=== PATIENT | male | born 1985 | race African-American/Black ===

== ENCOUNTER 2016-06-30 17:09 | Emergency (ER) | payer BC | END 2016-06-30 17:22 | disposition home or self-care (01) | LOC: ER 17:09 | DX: S16.1XXA Strain of muscle, fascia and tendon at neck level, initial encounter (principal); F17.200 Nicotine dependence, unspecified, uncomplicated; V89.2XXA Person injured in unspecified motor-vehicle accident, traffic, initial encounter | CPT/HCPCS: 72040; 99284 ==

== ENCOUNTER 2016-07-16 12:58 | Emergency (ER) | payer BC | END 2016-07-16 13:40 | disposition home or self-care (01) | LOC: ER 12:58 | DX: S76.211A Strain of adductor muscle, fascia and tendon of right thigh, initial encounter (principal); X50.9XXA Other and unspecified overexertion or strenuous movements or postures, initial encounter | CPT/HCPCS: 99283 ==